=== PATIENT | male | born 1945 | race Caucasian/White ===

== ENCOUNTER 2016-06-04 15:37 | Inpatient (IN) | payer BC ==
[2016-06-04] MEDS ORDERED: NS 0.9% 1000 ML* 1,000 ML IV SCH (16:15)
[2016-06-04] MEDS ORDERED: Aspirin Low Dose CHEW TAB* 81 MG PO ONE (16:16)
[2016-06-04] MEDS ORDERED: Metoprolol Tartrate TAB* 50 mg PO ONE (16:16)
[2016-06-04] MEDS ORDERED: Atorvastatin* 80 MG TAB PO ONE (16:16)
[2016-06-04 16:33] LABS: Hematocrit 41 % (42-52); Mean Corpuscular HGB Conc 34 g/dl (31-36); Mean Corpuscular Hemoglobin 31 pg (27-31); Mean Corpuscular Volume 92 fL (80-94); Mean Platelet Volume 10 um3 (7.4-10.4); Red Blood Count 4.51 10^6/ul (4.0-5.4); Red Cell Distribution Width 13 % (10.5-15); White Blood Count 6.7 10^3/ul (3.5-10.8)
[2016-06-04 16:49] LABS: ALT 14 U/L (7-52); AST 18 U/L (13-39); Albumin 4.1 g/dL (3.2-5.2); Alkaline Phosphatase 61 U/L (34-104); Anion Gap 8 mmol/L (2-11); Blood Urea Nitrogen 12 mg/dL (6-24); C Reactive Protein < 1.00 mg/L (< 5.00); CO2 Carbon Dioxide 26 mmol/L (22-32); Calcium 9.2 mg/dL (8.6-10.3); Chloride 103 mmol/L (101-111); Creatine Kinase 37 U/L (10-223); EGFR African American 113.7 (>60); EGFR Non-African American 88.4 (>60); Globulin 3.2 g/dL (2-4); Glucose 101 mg/dL (70-100); Lipase 26 U/L (11.0-82.0); Magnesium 2.1 mg/dL (1.9-2.7); Potassium 3.6 mmol/L (3.5-5.0); Sodium 137 mmol/L (133-145); Total Protein 7.3 g/dL (6.4-8.9)
[2016-06-04 16:51] LABS: Troponin I 0.01 ng/mL (<0.04)
--- NOTE | 2016-06-04 17:12 | RAD ---
Indication: Chest pain. Single frontal view of the chest performed at 1641 hours was reviewed. No prior study is available for comparison. No mediastinal shift is noted. Heart is of normal size and configuration. Lung schaeffer appear clear. Lung schaeffer appear hyperinflated. IMPRESSION: NO ACTIVE CARDIOPULMONARY DISEASE IS NOTED.
--- NOTE | 2016-06-04 17:14 | CONSULT ---
Subjective Date of Service: 06/04/16 Interval History: Admission date 06/04/2016 Consult date 06/04/2016 PMD: Dr. Jaycee Saavedra Service: Dr. Justin Saavedra/Hospitalist CC: Abnormal stress test, chest pain Reason for consult: Abnormal stress test, chest pain HPI: HISTORY OF PRESENT ILLNESS: Mr. Murillo is a 70-year-old man who is here with exertional chest pressure since on things like gardening/moving dirt, wood for woodstove since last year. Resolves with rest. Has been associated with dysnea although this has been variable in the past after respiratory tract infections as well. No rest symptoms or prolonged symptoms. No palpitations, syncope, edema. History of ulcerative colitis no recent hematochezia or UC flare did require blood transfusion 1999, last flare 2003. Urologist follows PSA occasional drop of blood in urine. No kidney issues. No chest discomfort at this time. MEDICATIONS: Takes no medications or [id number] medications. Allergies: No food or drug allergies Soc hx: , prior 2 PPD smoker quit 1983, quit alcohol 1983, [place] [address] Fam hx: no early CAD PMHx: Ulcerative colitis varicose veins Medications Active Medications: Sodium Chloride (Ns 0.9% 1000 Ml*) 1,000 mls @ 150 mls/hr IV PER RATE KAYLEIGH Last Admin: 06/04/16 16:32 Dose: 150 mls/hr Home Medications: NK [No Home Medications Reported] 03/15/15 [History Confirmed 03/15/15] Review of Systems - Measurements Intake and Output: Intake and Output Last 24 Hours 06/02/16 06/03/16 06/04/16 06/05/16 06:59 06:59 06:59 06:59 Weight 210 lb - Review of Systems Constitutional Symptoms: Negative: Weight Gain, Weight Loss, Weakness, Fatigue, Fever, Night Sweats Dermatology: Negative: Rash, Skin Lesions HEENT: Negative: Change in Hearing, Vertigo Eyes: Negative: Change in Vision, Double Vision, Eye Pain Thyroid: Negative: Goiter, Cold Intolerance, Heat Intolerance, Sweatiness, Constipation, Weight Loss, Weight Gain Pulmonary: Positive: Shortness of Breath, Exercise Intolerance Negative: Cough, Sputum, Hemoptysis, Wheezing, COPD, Home Oxygen Cardiology: Positive: Chest Pain, Shortness of Breath Negative: Palpitations, Swelling of Ankles, Peripheral Vascular Dis, Edema, Faintness, Syncope, Claudication, Paroxysmal Nocturnal Dyspnea, Orthopnea Gastroenterology: Negative: Abdominal Pain, Nausea, Vomiting, Anorexia, Indigestion, Difficulty Swallowing, Heartburn, Constipation, Diarrhea, Haematemesis, Melena Genital - Urinary: Negative: Dysuria, Polyuria Musculoskeletal: Negative: Joint Pain, Joint Stiffness, Arthritis, Osteoporosis, Low Back Pain Endocrinology: Negative: Thyroid Problems, Hyperglycemia, Hypoglycemia, Pituitary Disease Hematologic/Lymphatic: Negative: Anemia, Easy Brusing, Hx Leukemia, Use of Anticoagulant, Use of Antiplatelet Drugs Neurology: Negative: Headaches, Migraines, Change in Vision, Diplopia, Dizziness, Change in Balancing, Change in Coordination, Change in Memory, Change in Speech , Change in Walking, Hx of Stroke\TIA, Hx Seizures Psychiatry: Negative: Depressed Mood, Adhedonia, Guilt Feelings, Tearfulness, Unusual Fatigue Allergic/Immunologic: Positive: Hx Seasonal Allergies Negative: Hx Anaphylaxis, Hx Angioedema, Hx HIV, Immunocompromise, Swollen Glands Lymph Nodes Review of Systems Statement: All other review of systems negative, unless stated above. Objective Vital Signs: Temp Pulse Resp BP Pulse Ox 99.1 F 77 18 142/63 99 06/04/16 16:56 06/04/16 16:56 06/04/16 16:56 06/04/16 16:56 06/04/16 16:56 Appearance: NAD, pleasant Ears/Nose/Mouth/Throat: Clear Oropharnyx Neck: NL Appearance and Movements; NL JVP Respiratory: Symmetrical Chest Expansion and Respiratory Effort, Clear to Auscultation Cardiovascular: NL Sounds; No Murmurs; No JVD, RRR, No Edema Abdominal: NL Sounds; No Tenderness; No Distention Extremities: No Edema Skin: No Rash or Ulcers Neurological: Alert and Oriented x 3 Laboratory Results: 06/04/16 16:20 06/04/16 16:20 INR (Anticoag Therapy) 0.90 (0.89-1.11) 06/04/16 16:20 APTT 33.2 seconds (26.0-36.3) 06/04/16 16:20 Total Bilirubin 1.20 mg/dL (0.2-1.0) H 06/04/16 16:20 AST 18 U/L (13-39) 06/04/16 16:20 ALT 14 U/L (7-52) 06/04/16 16:20 Alkaline Phosphatase 61 U/L (34-104) 06/04/16 16:20 CK-MB (CK-2) 2.2 ng/mL (0.6-6.3) 06/04/16 16:20 B-Natriuretic Peptide 31 pg/mL (-100) 06/04/16 16:20 Total Protein 7.3 g/dL (6.4-8.9) 06/04/16 16:20 Albumin 4.1 g/dL (3.2-5.2) 06/04/16 16:20 Globulin 3.2 g/dL (2-4) 06/04/16 16:20 Albumin/Globulin Ratio 1.3 (1-3) 06/04/16 16:20 06/04/16 16:20 Troponin I 0.01 Diagnostic Imaging: CXR 06/04/2016: No active disease EKG 06/04/2016: NSR, LAFB Exercise stress EKG 06/04/2016: 5:15 maryuri protocol, stopped due to chest discomfort with drop in BP (154/86 to 134/60). Baseline EKG NSR, LAFB. 5 beat NSVT in recovery. Late recovery > 3:00 inferior and V4-V6 ischemic horizontal/ downsloping ST depression mostly resolved by 7:00 recovery Assessment/Plan In summary, Ash Murillo is a 70 year old man with a history of ulcerative colitis last major flare 2004 required pRBC transfusion in 200, prior tobacco use here with stable angina and a high risk exercise stress EKG. Pain free at this time. - Would admit to telemetry - Given aspirin 324 mg PO x 1 then 81 mg PO daily - Would give lovenox therapeutic x 1 - Start metoprolol - Start intensive dose statin, check lipid panel - Hold off on additional anti-platelet at this time - Check TTE - Cardiac catheterization with intent for revascularization indicated and recommended, discussed with Dr. Roach. Risks, benefits and alternatives discussed and patient would like to proceed. I would favor LITA if candidate for PCI we discussed the need for uninterrupted DAPT for at least 6 months to a year Thank you for allowing me to participate in the cardiovascular care of this patient. Please do not hesitate to contact me if there should be questions or concerns.
[2016-06-04 17:19] LABS: TSH (Thyroid Stimulating Horm) 1.68 mcIU/mL (0.34-5.60)
[2016-06-04] MEDS ORDERED: Ondansetron INJ* 2 MG/ML VIAL IV PRN (17:20)
[2016-06-04] MEDS ORDERED: Acetaminophen TAB* 325 MG PO PRN (17:20)
[2016-06-04] MEDS ORDERED: Enoxaparin(*) 40 MG/0.4 ML SYR SUBCUT ONE (17:25)
--- NOTE | 2016-06-04 17:41 | ED ---
Dave Bautista Billy, scribed for Talha Roblero MD on 06/04/16 at 1608 . Complex/Multi-Sys Presentation - HPI Summary HPI Summary: Patient is a 70 year-old male coming to [facility] for evaluation of an abnormal stress test earlier today. He was seen at [facility] earlier today, where triage note states he developed chest tightness and fatigue. However, here in the ED, he denies any chest pain or symptoms. - History Of Current Complaint Chief Complaint: EDChestPainROMI Time Seen by Provider: 06/04/16 16:03 Hx Obtained From: Patient, Medical Records Onset/Duration: Gradual Onset, Resolved Timing: Constant Severity Initially: Moderate Aggravating Factor(s): none Alleviating Factor(s): none Associated Signs And Symptoms: Positive: Chest Pain, Other - fatigue - Allergies/Home Medications Allergies/Adverse Reactions: Allergies Allergy/AdvReac Type Severity Reaction Status Date / Time seasonal Allergy Sneezing Uncoded 03/15/15 12:24 PMH/Surg Hx/FS Hx/Imm Hx Endocrine/Hematology History: Denies: Hx Diabetes Cardiovascular History: Denies: Hx Hypertension, Hx Myocardial Infarction Infectious Disease History: No Infectious Disease History: Denies: Traveled Outside the [place] in Last 30 Days - Family History Known Family History: Negative: Cardiac Disease, Hypertension, Diabetes - Social History Alcohol Use: None Substance Use Type: Reports: None Smoking Status (MU): Former Smoker Review of Systems Positive: Fatigue Positive: Chest Pain All Other Systems Reviewed And Are Negative: Yes Physical Exam Triage Information Reviewed: Yes Vital Signs On Initial Exam: Initial Vitals Temp Pulse Resp BP Pulse Ox 99.2 F 88 18 149/85 99 06/04/16 15:45 06/04/16 15:45 06/04/16 15:45 06/04/16 15:45 06/04/16 15:45 Vital Signs Reviewed: Yes Appearance: Positive: Well-Appearing, No Pain Distress Skin: Positive: Warm, Skin Color Reflects Adequate Perfusion, Dry Head/Face: Positive: Normal Head/Face Inspection Eyes: Positive: EOMI, TERESA Neck: Positive: Supple, Nontender Respiratory/Lung Sounds: Positive: Clear to Auscultation, Breath Sounds Present Cardiovascular: Positive: RRR Abdomen Description: Positive: Nontender, Soft Musculoskeletal: Positive: Normal, Strength/ROM Intact Neurological: Positive: Normal, Sensory/Motor Intact, Alert, Oriented to Person Place, Time Psychiatric: Positive: Affect/Mood Appropriate Diagnostics - Vital Signs Vital Signs Temp Pulse Resp BP Pulse Ox 06/04/16 15:45 99.2 F 88 18 149/85 99 - Laboratory Lab Results: Lab Results 06/04/16 06/04/16 06/04/16 Range/Units 16:20 16:20 16:20 WBC 6.7 (3.5-10.8) 10^3/ul RBC 4.51 (4.0-5.4) 10^6/ul Hgb 14.0 (14.0-18.0) g/dl Hct 41 L (42-52) % MCV 92 (80-94) fL MCH 31 (27-31) pg MCHC 34 (31-36) g/dl RDW 13 (10.5-15) % Plt Count 228 (150-450) 10^3/ul MPV 10 (7.4-10.4) um3 Neut % (Auto) 77.4 (38-83) % Lymph % (Auto) 13.1 L (25-47) % [place] % (Auto) 6.6 (1-9) % Eos % (Auto) 2.0 (0-6) % Baso % (Auto) 0.9 (0-2) % Absolute Neuts (auto) 5.2 (1.5-7.7) 10^3/ul Absolute Lymphs (auto) 0.9 L (1.0-4.8) 10^3/ul Absolute Monos (auto) 0.4 (0-0.8) 10^3/ul Absolute Eos (auto) 0.1 (0-0.6) 10^3/ul Absolute Basos (auto) 0.1 (0-0.2) 10^3/ul Absolute Nucleated RBC 0 10^3/ul Nucleated RBC % 0 INR (Anticoag Therapy) 0.90 (0.89-1.11) APTT 33.2 (26.0-36.3) seconds Sodium 137 (133-145) mmol/L Potassium 3.6 (3.5-5.0) mmol/L Chloride 103 (101-111) mmol/L Carbon Dioxide 26 (22-32) mmol/L Anion Gap 8 (2-11) mmol/L BUN 12 (6-24) mg/dL Creatinine 0.86 (0.67-1.17) mg/dL Est GFR ( Amer) 113.7 (>60) Est GFR (Non-Af Amer) 88.4 (>60) BUN/Creatinine Ratio 14.0 (8-20) Glucose 101 H (70-100) mg/dL Lactic Acid (0.5-2.0) mmol/L Calcium 9.2 (8.6-10.3) mg/dL Magnesium 2.1 (1.9-2.7) mg/dL Total Bilirubin 1.20 H (0.2-1.0) mg/dL AST 18 (13-39) U/L ALT 14 (7-52) U/L Alkaline Phosphatase 61 (34-104) U/L Total Creatine Kinase 37 (10-223) U/L CK-MB (CK-2) 2.2 (0.6-6.3) ng/mL Troponin I 0.01 (<0.04) ng/mL C-Reactive Protein < 1.00 (< 5.00) mg/L B-Natriuretic Peptide ( - 100) pg/mL Total Protein 7.3 (6.4-8.9) g/dL Albumin 4.1 (3.2-5.2) g/dL Globulin 3.2 (2-4) g/dL Albumin/Globulin Ratio 1.3 (1-3) Lipase 26 (11.0-82.0) U/L TSH 1.68 (0.34-5.60) mcIU/mL 06/04/16 06/04/16 Range/Units 16:20 16:20 WBC (3.5-10.8) 10^3/ul RBC (4.0-5.4) 10^6/ul Hgb (14.0-18.0) g/dl Hct (42-52) % MCV (80-94) fL MCH (27-31) pg MCHC (31-36) g/dl RDW (10.5-15) % Plt Count (150-450) 10^3/ul MPV (7.4-10.4) um3 Neut % (Auto) (38-83) % Lymph % (Auto) (25-47) % Greenwood % (Auto) (1-9) % Eos % (Auto) (0-6) % Baso % (Auto) (0-2) % Absolute Neuts (auto) (1.5-7.7) 10^3/ul Absolute Lymphs (auto) (1.0-4.8) 10^3/ul Absolute Monos (auto) (0-0.8) 10^3/ul Absolute Eos (auto) (0-0.6) 10^3/ul Absolute Basos (auto) (0-0.2) 10^3/ul Absolute Nucleated RBC 10^3/ul Nucleated RBC % INR (Anticoag Therapy) (0.89-1.11) APTT (26.0-36.3) seconds Sodium (133-145) mmol/L Potassium (3.5-5.0) mmol/L Chloride (101-111) mmol/L Carbon Dioxide (22-32) mmol/L Anion Gap (2-11) mmol/L BUN (6-24) mg/dL Creatinine (0.67-1.17) mg/dL Est GFR ( Amer) (>60) Est GFR (Non-Af Amer) (>60) BUN/Creatinine Ratio (8-20) Glucose (70-100) mg/dL Lactic Acid 0.8 (0.5-2.0) mmol/L Calcium (8.6-10.3) mg/dL Magnesium (1.9-2.7) mg/dL Total Bilirubin (0.2-1.0) mg/dL AST (13-39) U/L ALT (7-52) U/L Alkaline Phosphatase (34-104) U/L Total Creatine Kinase (10-223) U/L CK-MB (CK-2) (0.6-6.3) ng/mL Troponin I (<0.04) ng/mL C-Reactive Protein (< 5.00) mg/L B-Natriuretic Peptide 31 ( - 100) pg/mL Total Protein (6.4-8.9) g/dL Albumin (3.2-5.2) g/dL Globulin (2-4) g/dL Albumin/Globulin Ratio (1-3) Lipase (11.0-82.0) U/L TSH (0.34-5.60) mcIU/mL Result Diagrams: 06/04/16 16:20 06/04/16 16:20 Lab Statement: Any lab studies that have been ordered have been reviewed, and results considered in the medical decision making process. - EKG 1546 EKG Interpretation: NSR 76 bpm, LVH, no ectopy Complex Multi-Symp Course/Dx Assessment/Plan: DISCUSSED WITH DR JACKSON, CARDIOLOGY, AND HOSPITALIST. ADMIT HOSPITALIST STABLE. - Diagnoses Provider Diagnoses: Chest pain - Physician Notifications Discussed Care Of Patient With: Dr. Jackson (cardiology) @ 1612: recommends admission to hospitalist services. Dr. Saavedra (hospitalist) @ 1631: accepts admission. Discharge - Discharge Plan Condition: Stable Disposition: ADMITTED TO [facility] Referrals: No Primary Care Phys,NOPCP [Primary Care Provider] - The documentation as recorded by the Dave moon Billy accurately reflects the service I personally performed and the decisions made by me, Talha Roblero MD.
--- NOTE | 2016-06-04 19:14 | HP ---
ADMISSION HISTORY AND PHYSICAL: DATE OF ADMISSION: PRIMARY CARE PROVIDER: Dr. Jaycee Saavedra. HEALTHCARE PROXY: His sister who lives in [place]. CODE STATUS: Full. SOURCE OF INFORMATION: History obtained from interview with the patient, discussion with Cardiology, review of outpatient stress test. RELIABILITY: Very good. CHIEF COMPLAINT: Abnormal outpatient stress test. HISTORY OF PRESENT ILLNESS: This is a 70-year-old man, past medical history of reported ulcerative colitis twice in the early 1999, quiescence since then off therapy, who established care with Dr. Saavedra because of weight loss and decreased energy as well as sensation of increasing fatigue with exertion such as going on heights. Has noted with a left anterior fascicular block on 12- lead EKG at that time and referred for a treadmill stress testing. Testing occurred today and he is noted with a drop in his blood pressure at peak exercise from 150s to 130s associated with chest pain and dyspnea on exertion as well as 3- to 5-beat runs of nonsustained ventricular tachycardia on peak exercise and as well as in the first few minutes of recovery. The stress test was stopped after 5 minutes and 15 seconds due to decreased blood pressure and NSVT. The chest pain resolved in several minutes without intervention. The patient was referred to [facility]; however, declined ambulance and returned home to "arrange matters." He did ultimately present to [facility] [place] E[place] performed was notable for left anterior fascicular block, left axis, apparent old Q waves inferiorly, no other active evidence of ischemia. His first troponin is negative. When seen by this author, he was chest pain free, had no complaints. PAST MEDICAL HISTORY: Includes self-reported ulcerative colitis, history of benign positional vertigo, asthma as a child, varicose veins, erectile dysfunction. MEDICATIONS: Takes no medications or zbye-mqp-xnftqmh medications. ALLERGIES: SEASONAL. FAMILY HISTORY: No history of CAD. Father with illness that sounds like multiple myeloma, unconfirmed. SOCIAL HISTORY: Quit tobacco in 1983, smoked 1 to 2 packs per day for 20 years. He is . He also stopped drinking in 1983 with several frequent heavy bouts. He is employed as an [employer] librarian. REVIEW OF SYSTEMS: The patient has had no complaints except for as described in history of present illness. PHYSICAL EXAMINATION GENERAL: Pleasant man, sitting up in bed, interactive, pleasant, in no apparent distress. VITAL SIGNS: In the emergency room, 142/63, heart rate 60 beats per minute after received metoprolol, 99% on room air, T-max 99.1. HEENT: Oropharynx is clear. Moist mucous membranes. Sclerae are anicteric. NECK: He has nonelevated JVD. No cervical or supraclavicular lymphadenopathy. LUNGS: Clear throughout. HEART: He has regular rate and rhythm. No murmurs, rubs, or gallops. ABDOMEN: Soft, nontender, and nondistended. EXTREMITIES: Warm, well perfused without clubbing, cyanosis, or edema. He has 2+ peripheral pulses. PSYCH: He has no apparent anxiety, agitation, or depression. SKIN: Intact. DIAGNOSTIC STUDIES/LAB DATA: Labs reviewed: Troponin I 0.01. CRP less than 1. TSH 1.68. BUN 12, creatinine 0.86. White blood cell count 6.7, hemoglobin 14, platelets 228. Data reviewed: EKG: Normal sinus rhythm; left axis; old Qs in II, III, aVF; no ST or T-wave changes; left anterior fascicular block. Chest x-ray, impression: No active cardiopulmonary disease. ASSESSMENT AND PLAN: This is a 70-year-old man referred to [facility] after exercise stress test with concern for ischemia. Coronary artery disease: Suspected based on chest pain, drop in blood pressure , and ectopy at peak exercise. Appreciate Cardiology's assistance. One dose full- dose Lovenox now. Received metoprolol. Heart rate 60 beats per minute now. Hold additional Toprol until after cardiac stress test. Full-dose 80 mg atorvastatin now, continue tomorrow. We will adjust GRIFFIN inhibitor, beta heather , and statin after potential procedure tomorrow. Add on hemoglobin A1c to ED labs. Check a.m. fasting lipids. We will order a transthoracic echocardiogram. Nitro sublingual for any chest pain. Clear liquid diet for breakfast as ordered by our drying room operator. DVT prophylaxis: Full-dose Lovenox. Code status is full. CC: Dr. Jaycee Saavedra* [id number]/CPS #: [id number] MTDD
[2016-06-04] MEDS ORDERED: Enoxaparin(*) 100 MG/ML SYR SUBCUT ONE (22:00)
[2016-06-04] MEDS: Metoprolol Tartrate TAB* 25 MG PO SCH (22:18)
[2016-06-05] MEDS: Metoprolol Tartrate TAB* 25 MG PO SCH ×2 (05:58→21:03)
[2016-06-05 06:37] LABS: Urine Bacteria Absent (Absent); Urine Bilirubin Negative (Negative); Urine Glucose Negative (Negative); Urine Nitrite Negative (Negative)
[2016-06-05] MEDS ORDERED: NS 0.9% 1000 ML* 1,000 ML IV SCH ×2 (07:00→15:00)
[2016-06-05] MEDS: Aspirin EC Low Dose* 81 MG TAB.EC PO SCH (08:36)
--- NOTE | 2016-06-05 09:47 | PN ---
Subjective Date of Service: 06/05/16 Interval History: f/u chest pain, abnormal stress test no cp, dyspnea tele SB/SR, no arrhythmias Medications Active Medications: Acetaminophen (Tylenol Tab*) 650 mg PO Q4H PRN PRN Reason: FEVER/PAIN Aspirin (Aspirin Ec Low Dose*) 81 mg PO DAILY [facility] Last Admin: 06/05/16 08:36 Dose: 81 mg Atorvastatin Calcium (Lipitor*) 80 mg PO 2100 ONE Stop: 06/05/16 17:27 Sodium Chloride (Ns 0.9% 1000 Ml*) 1,000 mls @ 100 mls/hr IV .per rate [facility] Last Admin: 06/05/16 06:53 Dose: 100 mls/hr Metoprolol Tartrate (Lopressor Tab*) 25 mg PO Q8H [facility] Last Admin: 06/05/16 05:58 Dose: 25 mg Ondansetron HCl (Zofran Inj*) 4 mg IV Q4H PRN PRN Reason: NAUSEA/VOMITING Objective Vital Signs: Temp Pulse Resp BP Pulse Ox 98.3 F 51 16 118/57 98 06/05/16 06:10 06/05/16 06:10 06/05/16 08:30 06/05/16 06:10 06/05/16 06:10 Appearance: NAD, pleasant Ears/Nose/Mouth/Throat: Clear Oropharnyx Neck: NL Appearance and Movements; NL JVP Respiratory: Symmetrical Chest Expansion and Respiratory Effort, Clear to Auscultation Cardiovascular: NL Sounds; No Murmurs; No JVD, RRR, No Edema Abdominal: NL Sounds; No Tenderness; No Distention Extremities: No Edema Skin: No Rash or Ulcers Neurological: Alert and Oriented x 3 Laboratory Results: INR (Anticoag Therapy) 0.90 (0.89-1.11) 06/04/16 16:20 APTT 33.2 seconds (26.0-36.3) 06/04/16 16:20 Total Bilirubin 1.20 mg/dL (0.2-1.0) H 06/04/16 16:20 AST 18 U/L (13-39) 06/04/16 16:20 ALT 14 U/L (7-52) 06/04/16 16:20 Alkaline Phosphatase 61 U/L (34-104) 06/04/16 16:20 CK-MB (CK-2) 2.2 ng/mL (0.6-6.3) 06/04/16 16:20 B-Natriuretic Peptide 31 pg/mL (-100) 06/04/16 16:20 Total Protein 7.3 g/dL (6.4-8.9) 06/04/16 16:20 Albumin 4.1 g/dL (3.2-5.2) 06/04/16 16:20 Globulin 3.2 g/dL (2-4) 06/04/16 16:20 Albumin/Globulin Ratio 1.3 (1-3) 06/04/16 16:20 TSH 1.68 mcIU/mL (0.34-5.60) 06/04/16 16:20 Diagnostic Imaging: CXR 06/04/2016: No active disease EKG 06/04/2016: NSR, LAFB Exercise stress EKG 06/04/2016: 5:15 maryuri protocol, stopped due to chest discomfort with drop in BP (154/86 to 134/60). Baseline EKG NSR, LAFB. 5 beat NSVT in recovery. Late recovery > 3:00 inferior and V4-V6 ischemic horizontal/ downsloping ST depression mostly resolved by 7:00 recovery Assessment/Plan In summary, Ash Murillo is a 70 year old man with a history of ulcerative colitis last major flare 2004 required pRBC transfusion in 200, prior tobacco use here with stable angina and a high risk exercise stress EKG. Pain free at this time, TTE 06/05/2016 normal LV size and function LVEF 55-60% no obvious segmental WMA noted - Continue aspirin 81 mg PO daily - Hold further AC - Continue metoprolol - Continue statin, would check lipid panel - Hold off on additional anti-platelet at this time - Plan for cardiac catheterization later today, see consult note for details Thank you for allowing me to participate in the cardiovascular care of this patient. Please do not hesitate to contact me if there should be questions or concerns.
[2016-06-05] MEDS ORDERED: VERAPAMIL 2.5 MG/ML 4 ML VIAL ONE (11:21)
[2016-06-05] MEDS ORDERED: Heparin(*) 1000 UNIT/ML 10 ML VIAL CATH LAB IV ONE (11:21)
[2016-06-05] MEDS ORDERED: Iohexol 350 (CONTRAST) 200 ML MDV IV ONE (11:22)
[2016-06-05] MEDS ORDERED: Midazolam* 1 MG/ML 5 ML VIAL (5 MG) ONE (11:22)
[2016-06-05] MEDS ORDERED: Lidocaine 1% INJ* 10 MG/ML 30 ML SDV ONE (11:22)
[2016-06-05] MEDS ORDERED: Heparin 2 UNITS/ML IVPREMIX* 2,000 ML IV ONE (11:22)
[2016-06-05] MEDS ORDERED: nitroGLYCERIN DRIP* 250 ML ONE (11:22)
[2016-06-05] MEDS ORDERED: fentaNYL* 50 MCG/ML 2 ML VIAL (100 MCG VIAL) ONE (11:22)
--- NOTE | 2016-06-05 11:40 | PN ---
Subjective Date of Service: 06/05/16 Interval History: Seen and examined tele reviewed - sinus sanjuana no complaints, no CP Objective Active Medications: Acetaminophen (Tylenol Tab*) 650 mg PO Q4H PRN PRN Reason: FEVER/PAIN Aspirin (Aspirin Ec Low Dose*) 81 mg PO DAILY [facility] Last Admin: 06/05/16 08:36 Dose: 81 mg Atorvastatin Calcium (Lipitor*) 80 mg PO 2100 ONE Stop: 06/05/16 17:27 Sodium Chloride (Ns 0.9% 1000 Ml*) 1,000 mls @ 100 mls/hr IV .per rate [facility] Last Admin: 06/05/16 06:53 Dose: 100 mls/hr Metoprolol Tartrate (Lopressor Tab*) 25 mg PO Q8H [facility] Last Admin: 06/05/16 05:58 Dose: 25 mg Ondansetron HCl (Zofran Inj*) 4 mg IV Q4H PRN PRN Reason: NAUSEA/VOMITING Vital Signs 06/04/16 06/04/16 06/04/16 17:30 17:45 18:00 Temperature Pulse Rate 58 56 63 Respiratory 14 19 13 Rate Blood Pressure 130/63 117/69 (mmHg) O2 Sat by Pulse 97 97 96 Oximetry 06/04/16 06/04/16 06/04/16 18:01 18:15 18:30 Temperature 98.3 F Pulse Rate 65 69 61 Respiratory 20 17 15 Rate Blood Pressure 117/69 117/46 (mmHg) O2 Sat by Pulse 95 97 96 Oximetry 06/04/16 06/04/16 06/04/16 18:57 19:00 22:17 Temperature 98.6 F 98.7 F Pulse Rate 62 57 Respiratory 16 16 17 Rate Blood Pressure 127/58 128/62 (mmHg) O2 Sat by Pulse 100 97 Oximetry 06/04/16 06/04/16 06/05/16 22:30 23:43 03:49 Temperature 98.4 F 97.8 F Pulse Rate 54 52 Respiratory 19 20 20 Rate Blood Pressure 120/53 113/49 (mmHg) O2 Sat by Pulse 98 97 Oximetry 06/05/16 06/05/16 06:10 08:30 Temperature 98.3 F Pulse Rate 51 Respiratory 18 16 Rate Blood Pressure 118/57 (mmHg) O2 Sat by Pulse 98 Oximetry Oxygen Devices in Use Now: None Appearance: NAD Eyes: No Scleral Icterus, PERRLA Ears/Nose/Mouth/Throat: NL Teeth, Lips, Gums, Clear Oropharnyx Neck: NL Appearance and Movements; NL JVP, Trachea Midline Respiratory: Symmetrical Chest Expansion and Respiratory Effort, Clear to Auscultation Cardiovascular: NL Sounds; No Murmurs; No JVD, RRR Abdominal: NL Sounds; No Tenderness; No Distention, No Hepatosplenomegaly Lymphatic: No Cervical Adenopathy Extremities: No Edema Skin: No Rash or Ulcers Neurological: Alert and Oriented x 3 Result Diagrams: 06/04/16 16:20 06/04/16 16:20 Additional Lab and Data: Lab Results 06/04/16 06/04/16 06/04/16 Range/Units 16:20 16:20 16:20 WBC 6.7 (3.5-10.8) 10^3/ul RBC 4.51 (4.0-5.4) 10^6/ul Hgb 14.0 (14.0-18.0) g/dl Hct 41 L (42-52) % MCV 92 (80-94) fL MCH 31 (27-31) pg MCHC 34 (31-36) g/dl RDW 13 (10.5-15) % Plt Count 228 (150-450) 10^3/ul MPV 10 (7.4-10.4) um3 Neut % (Auto) 77.4 (38-83) % Lymph % (Auto) 13.1 L (25-47) % [place] % (Auto) 6.6 (1-9) % Eos % (Auto) 2.0 (0-6) % Baso % (Auto) 0.9 (0-2) % Absolute Neuts (auto) 5.2 (1.5-7.7) 10^3/ul Absolute Lymphs (auto) 0.9 L (1.0-4.8) 10^3/ul Absolute Monos (auto) 0.4 (0-0.8) 10^3/ul Absolute Eos (auto) 0.1 (0-0.6) 10^3/ul Absolute Basos (auto) 0.1 (0-0.2) 10^3/ul Absolute Nucleated RBC 0 10^3/ul Nucleated RBC % 0 INR (Anticoag Therapy) 0.90 (0.89-1.11) APTT 33.2 (26.0-36.3) seconds Sodium 137 (133-145) mmol/L Potassium 3.6 (3.5-5.0) mmol/L Chloride 103 (101-111) mmol/L Carbon Dioxide 26 (22-32) mmol/L Anion Gap 8 (2-11) mmol/L BUN 12 (6-24) mg/dL Creatinine 0.86 (0.67-1.17) mg/dL Est GFR ( Amer) 113.7 (>60) Est GFR (Non-Af Amer) 88.4 (>60) BUN/Creatinine Ratio 14.0 (8-20) Glucose 101 H (70-100) mg/dL Lactic Acid (0.5-2.0) mmol/L Calcium 9.2 (8.6-10.3) mg/dL Magnesium 2.1 (1.9-2.7) mg/dL Total Bilirubin 1.20 H (0.2-1.0) mg/dL AST 18 (13-39) U/L ALT 14 (7-52) U/L Alkaline Phosphatase 61 (34-104) U/L Total Creatine Kinase 37 (10-223) U/L CK-MB (CK-2) 2.2 (0.6-6.3) ng/mL Troponin I 0.01 (<0.04) ng/mL C-Reactive Protein < 1.00 (< 5.00) mg/L B-Natriuretic Peptide ( - 100) pg/mL Total Protein 7.3 (6.4-8.9) g/dL Albumin 4.1 (3.2-5.2) g/dL Globulin 3.2 (2-4) g/dL Albumin/Globulin Ratio 1.3 (1-3) Lipase 26 (11.0-82.0) U/L TSH 1.68 (0.34-5.60) mcIU/mL 06/04/16 06/04/16 Range/Units 16:20 16:20 WBC (3.5-10.8) 10^3/ul RBC (4.0-5.4) 10^6/ul Hgb (14.0-18.0) g/dl Hct (42-52) % MCV (80-94) fL MCH (27-31) pg MCHC (31-36) g/dl RDW (10.5-15) % Plt Count (150-450) 10^3/ul MPV (7.4-10.4) um3 Neut % (Auto) (38-83) % Lymph % (Auto) (25-47) % [place] % (Auto) (1-9) % Eos % (Auto) (0-6) % Baso % (Auto) (0-2) % Absolute Neuts (auto) (1.5-7.7) 10^3/ul Absolute Lymphs (auto) (1.0-4.8) 10^3/ul Absolute Monos (auto) (0-0.8) 10^3/ul Absolute Eos (auto) (0-0.6) 10^3/ul Absolute Basos (auto) (0-0.2) 10^3/ul Absolute Nucleated RBC 10^3/ul Nucleated RBC % INR (Anticoag Therapy) (0.89-1.11) APTT (26.0-36.3) seconds Sodium (133-145) mmol/L Potassium (3.5-5.0) mmol/L Chloride (101-111) mmol/L Carbon Dioxide (22-32) mmol/L Anion Gap (2-11) mmol/L BUN (6-24) mg/dL Creatinine (0.67-1.17) mg/dL Est GFR ( Amer) (>60) Est GFR (Non-Af Amer) (>60) BUN/Creatinine Ratio (8-20) Glucose (70-100) mg/dL Lactic Acid 0.8 (0.5-2.0) mmol/L Calcium (8.6-10.3) mg/dL Magnesium (1.9-2.7) mg/dL Total Bilirubin (0.2-1.0) mg/dL AST (13-39) U/L ALT (7-52) U/L Alkaline Phosphatase (34-104) U/L Total Creatine Kinase (10-223) U/L CK-MB (CK-2) (0.6-6.3) ng/mL Troponin I (<0.04) ng/mL C-Reactive Protein (< 5.00) mg/L B-Natriuretic Peptide 31 ( - 100) pg/mL Total Protein (6.4-8.9) g/dL Albumin (3.2-5.2) g/dL Globulin (2-4) g/dL Albumin/Globulin Ratio (1-3) Lipase (11.0-82.0) U/L TSH (0.34-5.60) mcIU/mL Assess/Plan/Problems-Billing Assessment: 70 yo M a/w high risk stress test after referral for new LAFB and increased dyspnea - Patient Problems (1) Abnormal stress test Comment: Appreciate cards assistance plan on stress ASA high dose statin no e/o DM2 Lipids pending Metoprolol per cardiology ACEi after procedure (2) Bradycardia Comment: In setting of beta heather monitor
[2016-06-05] MEDS ORDERED: Ticagrelor* 90 MG TAB PO ONE (12:50)
[2016-06-05] MEDS ORDERED: Adenosine* 3 MG/ML VIAL ONE (13:37)
[2016-06-05] MEDS ORDERED: Nitroglycerin TAB 0.4 MG* 0.4 MG TAB SL PRN (14:51)
[2016-06-05] MEDS ORDERED: Atorvastatin* 80 MG TAB PO SCH (17:00)
[2016-06-05] MEDS ORDERED: Atorvastatin* 80 MG TAB PO ONE (17:26)
[2016-06-05] MEDS ORDERED: Ticagrelor* 90 MG TAB PO SCH (21:00)
[2016-06-06 06:50] LABS: BUN/Creatinine Ratio 16.7 (8-20); Calcium 8.4 mg/dL (8.6-10.3); EGFR African American 139.6 (>60); EGFR Non-African American 108.6 (>60); HDL Cholesterol 47.8 mg/dL; Potassium 4.1 mmol/L (3.5-5.0)
[2016-06-06 07:15] VITALS: BP 131/69
[2016-06-06] MEDS ORDERED: CMC:Prasugrel (NF) 10 MG PO SCH (11:00)
[2016-06-06] MEDS: Metoprolol Tartrate TAB* 25 MG PO SCH ×2 (11:53→12:03)
[2016-06-06] MEDS: Aspirin EC Low Dose* 81 MG TAB.EC PO SCH (11:53)
--- NOTE | 2016-06-07 02:13 | DS ---
DISCHARGE SUMMARY: DATE OF ADMISSION: 06/04/16 DATE OF DISCHARGE: 06/06/16 PRIMARY CARE PROVIDER: Dr. Jaycee Saavedra. WELL TENDER: Dr. Reggie Mcnamara. EMR TRAINER: Dr. Steffanie Roach. PRIMARY DIAGNOSIS: Abnormal stress test with percutaneous coronary intervention , stent placement in proximal LAD, right radial access. SECONDARY DIAGNOSES: 1. Bradycardia, on metoprolol. 2. Self-reported ulcerative colitis, on no medication. MEDICATIONS ON DISCHARGE: 1. Effient 10 mg daily. 2. Nitroglycerin sublingual patch 0.4 mg take every 5 minutes up to 3 tabs for chest pain. 3. Metoprolol succinate 25 mg daily. 4. Atorvastatin 40 mg daily. 5. Aspirin 81 mg daily. PERTINENT LABORATORY DATA: Hemoglobin A1c 5.7. Total cholesterol 139, LDL 80, HDL 47.8, triglycerides 56. PERTINENT VITAL SIGNS: Heart rate in the 40s to 50s, on 25 mg of metoprolol twice daily, decreased to 25 mg daily on discharge. HISTORY OF PRESENT ILLNESS AND HOSPITAL COURSE: This is a pleasant 70-year-old gentleman referred for cardiac stress test by Dr. Jaycee Saavedra after noting new left anterior fascicular block as well as increasing dyspnea on exertion reported by the patient. During that test, the patient had a drop in his blood pressure as well as frequent ectopy and chest pain. He was referred to [facility] Emergency Room. He underwent left heart cath with right radial access with Dr. Roach day prior to discharge with placement of drug-eluting stent to the proximal LAD. The patient tolerated the procedure well. There were no complications through this patient's hospital stay. All medications are new to the patient. He was on no medications prior to presentation. Long conversation was undergone with the patient pertaining to adherence to new medication regimen. He understands clearly and indicates that he fully plans to continue all medications. Diet and exercise counseling were also given. FOLLOWUP: Please: 1. Adjust beta heather as needed. 2. Consider adding GRIFFIN inhibitor as needed. 3. No other specific labs or vitals that need followup. Reasons to return to the hospital including but not limited to recurrent symptoms, shortness of breath, chest pain, nausea, vomiting, lightheadedness, loss of consciousness, fevers, chills, night sweats, swelling over his access site, pulsatile access site, red access site, inability to obtain or tolerate his medications were discussed with the patient. He acknowledged understanding. TIME SPENT: Greater than 45 minutes were spent on discharge of this patient, greater than half was spent [id number] with the patient. CC: Dr. Jaycee Saavedra; Dr. Reggie Mcnamara; Dr. Steffanie Roach. * [id number]/[facility] #: [id number] MTDE[facility]
--- NOTE | 2016-06-11 03:31 | CATH ---
STENT REPORT: DATE OF PROCEDURE: 06/05/16 - ROOM #[id number] PRIMARY CARE PHYSICIAN: Dr. Jaycee Saavedra. RADIOLOGIC TECHNOLOGIST MAMMOGRAM: Dr. Mcnamara. PROCEDURES: Right radial artery access, bilateral selective coronary cineangiography, left heart catheterization, left ventriculography, FFR measurement LAD, IVUS LAD, stent placement LAD, 3.5 x 16 Synergy drug-eluting stent. HISTORY: A 70-year-old male with stable predictable exertional angina with somewhat decreasing threshold over time, remote history of ulcerative colitis with previous GI bleed, referred for cardiac cath after high risk stress test with angina, systolic hypotension and ST elevation. PROCEDURE ACCESS: Right radial artery sheath, 6F slender. DIAGNOSTIC CATHETERS: 5-F TIG4, 6-FL4, 5-F pigtail. After diagnostic angiography, FFR of the proximal LAD intermediate stenosis was performed after IC nitroglycerin, and using IC boluses of adenosine. IVUS of the LAD was then performed to optimize the stent result given the history of previous ulcerative colitis and potential need for antiplatelet interruption. MEDICATIONS: 1. Subcu lidocaine. 2. IV Versed. 3. IV fentanyl. 4. Heparin 3000 units. 5. Nitroglycerin 300 mcg. 6. Verapamil 3 mg IA. 7. Heparin 2000 units, 2000 units, 3000 units IV. 8. Brilinta 180 mg p.o. loading dose. 9. Adenosine 100, 100 mcg IC for FFR. 10. Nitroglycerin 100 mcg IC pre-FFR. HEMODYNAMICS: Initial BP 143/79, FFR LAD with 100 mcg of IC adenosine after IC nitro, FFR 0.75. LV 109/3-11, no aortic valve gradient on pullback. ANGIOGRAPHY: Left Main: The left main is normal in size, short, has no stenosis. LAD: The LAD is large, extends past the apex and supplies the infra-apical segment, the LAD has a fairly smooth appearing proximal 50% stenosis followed by two small diagonals. Distal LAD has no significant stenosis. Circumflex: The circumflex is large, codominant with a large marginal, large posterolateral and a large circumflex PDA. The circumflex has no significant stenosis. There is a very small ramus with ostial 60% stenosis, less than 2 mm reference diameter. RCA: The RCA is moderate, codominant with a [id number] PDA, has no significant stenosis. The PDA is bifurcated. LV gram: LV wall motion is normal, estimated LVEF 60%. After FFR evaluation of the proximal LAD, a drug-eluting stent was placed, deployed at 16 atmospheres 30 seconds, postdilated with a 3.5 x 15 non- compliant balloon 18 atmospheres for 30 seconds x2. IVUS was then repeated. Angiographic assessment after stent placement and postdilatation shows ANIRUDH-3 flow, no residual stenosis. IVUS distal reference vessel diameter is 3.5 x 3.5. Distal LAD has scattered noncalcified plaque. At the point of most severe stenosis, there is high- grade stenosis with eccentric, mostly fibrous plaque. Proximal reference is close to 4 x 4. After stent deployment and postdilatation, there is excellent apposition and expansion. CONCLUSION: 1. One-vessel disease LAD with intermediate stenosis with abnormal FFR, excellent angiographic result with drug-eluting stent placement with ultrasound guidance to minimize subsequent risk of stent thrombosis. 2. Normal LV systolic function. 3. Normal left-sided hemodynamics. 4. Successful right radial artery access. CC: Dr. Jaycee Saavedra; Dr. Mcnamara* [id number]/[facility] #: [id number] [facility]
== END 2016-06-06 15:30 | disposition home or self-care (01) | DRG 175 ==
LOC: ED 15:37 → MEDTELE 17:20 → ICU 06-05 14:02 → MEDTELE 06-06 06:39
PROVIDERS: ADMIT Internal Medicine; ATTEND Internal Medicine
PROC: B2151ZZ Fluoroscopy of Left Heart using Low Osmolar Contrast (ICD-10-PCS; 2016-06-05)
PROC: 4A023N7 Measurement of Cardiac Sampling and Pressure, Left Heart, Percutaneous Approach (ICD-10-PCS; 2016-06-05)
PROC: 027034Z Dilation of Coronary Artery, One Artery with Drug-eluting Intraluminal Device, Percutaneous Approach (ICD-10-PCS; 2016-06-05)
PROC: B2111ZZ Fluoroscopy of Multiple Coronary Arteries using Low Osmolar Contrast (ICD-10-PCS; principal; 2016-06-05 12:00)
DX: I25.118 Atherosclerotic heart disease of native coronary artery with other forms of angina pectoris (principal); I47.2 Ventricular tachycardia; K51.90 Ulcerative colitis, unspecified, without complications; R94.39 Abnormal result of other cardiovascular function study; J45.909 Unspecified asthma, uncomplicated; J30.2 Other seasonal allergic rhinitis; F10.21 Alcohol dependence, in remission; I44.4 Left anterior fascicular block; R00.1 Bradycardia, unspecified; T44.7X5A Adverse effect of beta-adrenoreceptor antagonists, initial encounter; I83.90 Asymptomatic varicose veins of unspecified lower extremity; Z87.891 Personal history of nicotine dependence; Z79.01 Long term (current) use of anticoagulants; Z79.82 Long term (current) use of aspirin
CPT/HCPCS: 36415; 71010; 80048; 80053; 80061; 81003; 81015; 82550; 82553; 83036; 83605; 83690; 83735; 83880; 84443; 84484; 85025; 85610; 85730; 86140; 93005; 93306; 93458; A9270-GY; C1725; C1753; C1769; C1876; C1887; C9600-LD; J0153; J1644; J1650; J2250; J3010